=== PATIENT | male | born 1980 | race Caucasian/White ===

== ENCOUNTER 2016-09-10 01:03 | Emergency (ER) | payer MEDICAID ==
[~2016-09-10] VITALS: Ht 177.8 cm; Wt 81.6 kg
[2016-09-10 01:19] VITALS: BP 146/75; PULSE 109; RESP 14; TEMP 97.9; O2SAT 98
== END 2016-09-10 01:48 | disposition left against medical advice (07) ==
LOC: SED 01:03
DX: M79.661 Pain in right lower leg (principal); B19.20 Unspecified viral hepatitis C without hepatic coma; Z53.21 Procedure and treatment not carried out due to patient leaving prior to being seen by health care provider

== ENCOUNTER 2016-09-11 02:36 | Emergency (ER) | payer MEDICAID ==
[~2016-09-11] VITALS: Ht 177.8 cm; Wt 81.6 kg
[2016-09-11 02:36] VITALS: BP 137/78; PULSE 104; RESP 20; TEMP 97.4; O2SAT 94
[2016-09-11] MEDS ORDERED: IBUPROFEN 600 MG TABLET PO ONE (03:30)
[2016-09-11] MEDS ORDERED: CEPHALEXIN 500 MG CAPSULE PO ONE (03:30)
[2016-09-11 03:35] VITALS: BP 137/78; PULSE 98; RESP 20; TEMP 97.4; O2SAT 94
== END 2016-09-11 03:35 | disposition home or self-care (01) ==
LOC: SED 02:36
DX: S80.811A Abrasion, right lower leg, initial encounter (principal); L03.115 Cellulitis of right lower limb; Z86.19 Personal history of other infectious and parasitic diseases; V19.9XXA Pedal cyclist (driver) (passenger) injured in unspecified traffic accident, initial encounter; Y93.I9 Activity, other involving external motion; Y92.89 Other specified places as the place of occurrence of the external cause; Y99.8 Other external cause status
CPT/HCPCS: 99283

== ENCOUNTER 2016-12-24 19:46 | Emergency (ER) | payer MEDICAID ==
[~2016-12-24] VITALS: Ht 175.3 cm; Wt 79.4 kg
[2016-12-24 19:53] VITALS: BP_SYST 119
== END 2016-12-24 21:08 | disposition left against medical advice (07) ==
LOC: SED 19:46
DX: L02.415 Cutaneous abscess of right lower limb (principal); Z53.21 Procedure and treatment not carried out due to patient leaving prior to being seen by health care provider

== ENCOUNTER 2016-12-25 20:16 | Emergency (ER) | payer MEDICAID ==
[~2016-12-25] VITALS: Ht 175.3 cm; Wt 79.4 kg
[2016-12-25 20:40] VITALS: BP_SYST 134
== END 2016-12-26 01:55 | disposition left against medical advice (07) ==
LOC: SED 20:16
DX: L02.212 Cutaneous abscess of back [any part, except buttock and flank] (principal); L02.416 Cutaneous abscess of left lower limb; L02.415 Cutaneous abscess of right lower limb; Z53.21 Procedure and treatment not carried out due to patient leaving prior to being seen by health care provider

== ENCOUNTER 2017-03-23 01:09 | Emergency (ER) | payer MEDICAID ==
[~2017-03-23] VITALS: Ht 175.3 cm; Wt 83.5 kg
[2017-03-23 01:46] VITALS: BP_SYST 133
[2017-03-23] MEDS ORDERED: ceFAZolin SODIUM 1 GM VIAL IM ONE (02:45)
[2017-03-23 03:08] VITALS: BP_SYST 130
== END 2017-03-23 03:08 | disposition home or self-care (01) ==
LOC: SED 01:09
DX: L03.317 Cellulitis of buttock (principal); K76.9 Liver disease, unspecified
CPT/HCPCS: 96372; 99283; J0690; J7030

== ENCOUNTER 2018-12-27 00:17 | Emergency (ER) | payer MEDICAID ==
[~2018-12-27] VITALS: Ht 177.8 cm; Wt 77.1 kg
[2018-12-27 00:20] VITALS: BP_SYST 141
[2018-12-27] MEDS ORDERED: IBUPROFEN 800 MG TABLET PO ONE (00:45)
[2018-12-27 01:59] VITALS: BP_SYST 141
== END 2018-12-27 01:56 | disposition home or self-care (01) ==
LOC: SED 00:17
DX: S20.211A Contusion of right front wall of thorax, initial encounter (principal); R03.0 Elevated blood-pressure reading, without diagnosis of hypertension; F17.200 Nicotine dependence, unspecified, uncomplicated; Z86.19 Personal history of other infectious and parasitic diseases; Z90.89 Acquired absence of other organs; X58.XXXA Exposure to other specified factors, initial encounter; Y93.89 Activity, other specified; Y92.89 Other specified places as the place of occurrence of the external cause; Y99.8 Other external cause status
CPT/HCPCS: 71045; 71100; 99283

== ENCOUNTER 2020-03-15 20:29 | Emergency (ER) | payer MEDICAID ==
[~2020-03-15] VITALS: Ht 177.8 cm; Wt 77.1 kg
[2020-03-15 20:35] VITALS: BP_SYST 154
[2020-03-15] MEDS ORDERED: KETOROLAC TROMETHAMINE 30 MG VIAL IM ONE (22:15)
[2020-03-15] MEDS ORDERED: cefTRIAXone 1 GM in LIDOCAINE 1%, 20 ML MDV 2.1 ML IM ONE (22:15)
[2020-03-15 23:24] VITALS: BP_SYST 145
== END 2020-03-15 23:24 | disposition home or self-care (01) ==
LOC: SED 20:29
DX: L03.114 Cellulitis of left upper limb (principal); Z86.19 Personal history of other infectious and parasitic diseases
CPT/HCPCS: 96372; 99284; J0696; J1885; J2001

== ENCOUNTER 2022-12-12 20:40 | Emergency (ER) | payer MEDICAID ==
[2022-12-12 20:49] VITALS: BP_SYST 134
--- NOTE | 2022-12-12 22:39 | NUR ---
PT WAS PLACED IN ROOM 3 PT CHANGED INTO GOWN, PT CO LEFT SIDE PELVIC PAIN, AT 2225 PT LEFT ER CLAIMING HE HAD OTHER PRIORITES AND WOULD BE BACK.
--- NOTE | 2022-12-12 22:41 | NUR ---
PT WAS NOT SEEN BY ED MD
== END 2022-12-12 22:39 | disposition left against medical advice (07) ==
LOC: SED 20:40
DX: R10.32 Left lower quadrant pain (principal); R33.9 Retention of urine, unspecified; Z53.21 Procedure and treatment not carried out due to patient leaving prior to being seen by health care provider
CPT/HCPCS: 99281

== ENCOUNTER 2023-03-11 17:09 | Emergency (ER) | payer MEDICAID | END 2023-03-11 17:26 | disposition left against medical advice (07) | LOC: SED 17:09 | DX: S22.31XD Fracture of one rib, right side, subsequent encounter for fracture with routine healing (principal); Z53.21 Procedure and treatment not carried out due to patient leaving prior to being seen by health care provider; X58.XXXD Exposure to other specified factors, subsequent encounter ==

== ENCOUNTER 2023-03-11 17:39 | Emergency (ER) | payer MEDICAID ==
[~2023-03-11] VITALS: Ht 177.8 cm; Wt 76.2 kg
[2023-03-11 17:47] VITALS: BP_SYST 137; PULSE 85; RESP 18; TEMP 98.2; O2SAT 98
== END 2023-03-11 20:10 | disposition left against medical advice (07) ==
LOC: SED 17:39
DX: R07.81 Pleurodynia (principal); Z53.21 Procedure and treatment not carried out due to patient leaving prior to being seen by health care provider
CPT/HCPCS: 71110; 99281

== ENCOUNTER 2024-01-22 21:32 | Inpatient (IN) | payer MEDICAID ==
[~2024-01-22] VITALS: Ht 177.8 cm; Wt 78.0 kg
[2024-01-22 21:49] VITALS: BP_SYST 134; PULSE 114; RESP 20; TEMP 101.8; O2SAT 98
[2024-01-22] MEDS: NS 1000 ML IV.SOLN IV ONE (22:59)
[2024-01-22 23:07] LABS: BASOPHILS % (AUTO) 0.4 % (0.0-2.0); EOSINOPHILS # (AUTO) 0.2 K/uL (0.0-0.4); EOSINOPHILS % (AUTO) 4.2 % (0.0-4.0); HEMATOCRIT 30.9 % (36-54); HEMOGLOBIN 10.6 g/dL (14.0-18.0); LYMPHOCYTES # (AUTO) 0.4 K/uL (1.0-5.5); LYMPHOCYTES % (AUTO) 11.7 % (20.5-51.5); MEAN CORPUSCULAR HEMOGLOBIN 30 pg (27-31); MEAN CORPUSCULAR HGB CONC 34 % (32-36); MEAN CORPUSCULAR VOLUME 88 fL (79.0-98.0); MONOCYTES # (AUTO) 0.4 K/uL (0.0-1.0); NEUTROPHILS # (AUTO) 2.8 K/uL (1.8-7.7); NEUTROPHILS % (AUTO) 73.7 % (40.0-70.0); PLATELET COUNT (AUTO) 139 K/uL (130-430); RED CELL DISTRIBUTION WIDTH 15.6 % (9.0-15.0); WHITE BLOOD COUNT (AUTO) 3.8 K/uL (4.8-10.8)
[2024-01-22 23:32] LABS: PROTHROMBIN TIME 10.4 SECS (9.5-12.5)
[2024-01-23 00:21] LABS: ALANINE AMINOTRANSFERASE 58 U/L (12-78); ALBUMIN 2.5 g/dL (3.4-4.8); ANION GAP 13 (5-15); ASPARTATE AMINOTRANSFERASE 62 U/L (10-37); BILIRUBIN,DIRECT 0.5 mg/dL (0.0-0.3); CARBON DIOXIDE 23 mmol/L (23-29); CHLORIDE 102 mmol/L (98-107); CREATININE 1.66 mg/dL (0.55-1.30); GFR AFRICAN AMERICAN 59 mL/min (>90); GFR NON AFRICAN-AMERICAN 49 mL/min (>90); GLUCOSE 109 mg/dL (74-106); POTASSIUM 3.9 mmol/L (3.5-5.1); SODIUM SERUM 138 mmol/L (136-145); TOTAL PROTEIN, SERUM 7.7 g/dL (6.4-8.3); UREA NITROGEN, BLOOD 52 mg/dL (8-21)
[2024-01-23] MEDS ORDERED: ONDANSETRON HCL 4 MG/2 ML VIAL IVP PRN (01:15)
[2024-01-23] MEDS ORDERED: ACETAMINOPHEN 325 MG TABLET PO PRN (01:15)
[2024-01-23] MEDS: *LOVENOX 1MG/KG Q12H/PHARMACY XX ONE (01:15)
[2024-01-23] MEDS ORDERED: PIPERACILLIN/TAZOBACTAM 3.375 GM/VIAL (ZOSYN) IV ONE (01:43)
[2024-01-23] MEDS: PIPERACILLIN/TAZO 3.375 GM in NS 50 ML IV SCH (01:50)
[2024-01-23] MEDS: NACL 0.9% 1,000 ML IV ONE (01:51)
[2024-01-23 03:57] LABS: BILIRUBIN,URINE NEGATIVE (NEGATIVE); BLOOD, URINE 2+ (NEGATIVE); CLARITY/URINE SL CLOUDY (CLEAR); COLOR,URINE YELLOW (YELLOW); GLUCOSE,URINE NEGATIVE (NEGATIVE); KETONES,URINE NEGATIVE (NEGATIVE); LEUKOCYTE ESTERASE ,URINE 2+ (NEGATIVE); NITRITE, URINE POSITIVE (NEGATIVE); PROTEIN URINE TRACE (NEGATIVE)
[2024-01-23 04:07] LABS: BACTERIA,URINE MODERATE /HPF (None Seen)
[2024-01-23 04:13] LABS: BARBITURATE, URINE NEGATIVE (NEG <=200); BENZODIAZEPINE, URINE NEGATIVE (NEG <=150); CANNABINOID, URINE NEGATIVE (NEG <=50); COCAINE, URINE NEGATIVE (NEG <=150); METHAMPHETAMINES SCREEN,URINE POSITIVE (NEG <=500); OPIATE, URINE NEGATIVE (NEG <=100); PHENCYCLIDINE SCREEN,URINE NEGATIVE (NEG <=25); URINE AMPHETAMINE POSITIVE (NEG <=500); URINE METHADONE NEGATIVE (NEG <=200)
[2024-01-23 04:14] LABS: UR TRICYCLIC ANTIDEPRESSANTS NEGATIVE (NEG <=300); URINE OXYCODONE SCREEN NEGATIVE (NEG <=100)
[2024-01-23 04:45] VITALS: BP_SYST 144; PULSE 98; RESP 20; TEMP 100.4
[2024-01-23 05:27] VITALS: O2SAT 97
[2024-01-23] MEDS: ENOXAPARIN SODIUM 80 MG/0.8 ML SYRINGE SUBCUT SCH (08:06)
[2024-01-23] MEDS: MORPHINE 4 MG INJ. 4 MG/ML VIAL IVP PRN (08:07)
[2024-01-23 10:52] LABS: BASOPHILS % (AUTO) 1.2 % (0.0-2.0); EOSINOPHILS # (AUTO) 0.2 K/uL (0.0-0.4); EOSINOPHILS % (AUTO) 5.5 % (0.0-4.0); HEMATOCRIT 28.3 % (36-54); HEMOGLOBIN 9.8 g/dL (14.0-18.0); LYMPHOCYTES # (AUTO) 0.8 K/uL (1.0-5.5); LYMPHOCYTES % (AUTO) 22.5 % (20.5-51.5); MEAN CORPUSCULAR HEMOGLOBIN 30 pg (27-31); MEAN CORPUSCULAR HGB CONC 35 % (32-36); MEAN CORPUSCULAR VOLUME 87 fL (79.0-98.0); MONOCYTES # (AUTO) 0.4 K/uL (0.0-1.0); MONOCYTES % (AUTO) 13.3 % (1.7-9.3); NEUTROPHILS # (AUTO) 1.9 K/uL (1.8-7.7); NEUTROPHILS % (AUTO) 57.5 % (40.0-70.0); PLATELET COUNT (AUTO) 125 K/uL (130-430); RED BLOOD CELL COUNT(AUTO) 3.25 MIL/uL (4.2-6.2); RED CELL DISTRIBUTION WIDTH 15.3 % (9.0-15.0); WHITE BLOOD COUNT (AUTO) 3.4 K/uL (4.8-10.8)
[2024-01-23] MEDS: HYDROcodone/ACETAMIN 5-325 MG TAB (NORCO/ VICODIN) PO PRN (10:58)
[2024-01-23 11:01] LABS: CALCIUM 8.3 mg/dL (8.4-11.0); CREATININE 1.4 mg/dL (0.55-1.30); POTASSIUM 3.9 mmol/L (3.5-5.1); TOTAL BILIRUBIN 0.9 mg/dL (0.0-1.0); TOTAL PROTEIN, SERUM 6.2 g/dL (6.4-8.3)
[2024-01-23 11:24] VITALS: BP_SYST 144; PULSE 98; O2SAT 96
[2024-01-23 12:00] VITALS: BP_SYST 135; PULSE 99; RESP 18; TEMP 98.5; O2SAT 99
[2024-01-23 16:32] VITALS: BP_SYST 128; PULSE 96; RESP 18; TEMP 99.7; O2SAT 100
[2024-01-23 20:00] VITALS: BP_SYST 143; PULSE 93; RESP 18; TEMP 98.9; O2SAT 96
[2024-01-23] MEDS: APIXABAN 2.5 MG TABLET PO SCH (21:52)
[2024-01-24] MEDS ORDERED: NALOXONE HCL 0.4 MG/ML AMP (NARCAN) IVP PRN ×2 (01:30)
[2024-01-24] MEDS: LORazepam 2 MG/ML VIAL IVP PRN (01:33)
[2024-01-24] MEDS: HYDROcodone/ACETAMIN 10-325 MG TAB PO ONE (01:33)
[2024-01-24 08:20] VITALS: BP_SYST 137; PULSE 99; RESP 16; TEMP 97; O2SAT 98
[2024-01-24 11:06] VITALS: O2SAT 98
[2024-01-24 12:38] VITALS: BP_SYST 139; PULSE 74; RESP 18; TEMP 97.8; O2SAT 97
[2024-01-24 15:58] VITALS: O2SAT 97
[2024-01-24 17:15] VITALS: BP_SYST 133; PULSE 89; RESP 18; TEMP 97.9; O2SAT 98
[2024-01-24 20:00] VITALS: BP_SYST 111; PULSE 90; RESP 18; TEMP 98.5; O2SAT 99
[2024-01-25 00:02] VITALS: BP_SYST 146; PULSE 93; RESP 18; TEMP 98.6; O2SAT 98
[2024-01-25] MEDS: HYDROcodone/ACETAMIN 10-325 MG TAB PO PRN (00:32)
[2024-01-25 08:00] VITALS: BP_SYST 124; PULSE 78; RESP 18; TEMP 98.1; O2SAT 98; O2SAT 99
[2024-01-25 16:00] VITALS: BP_SYST 130; PULSE 72; RESP 20; TEMP 97.8; O2SAT 96
[2024-01-25 20:00] VITALS: BP_SYST 111; PULSE 86; RESP 18; TEMP 97.8; O2SAT 99
[2024-01-25] MEDS: BISACODYL 5 MG TABLET.DR (DULCOLAX) PO ONE (22:23)
[2024-01-25] MEDS: DOCUSATE SODIUM 250 MG CAPSULE PO ONE (22:23)
[2024-01-26 08:00] VITALS: BP_SYST 139; PULSE 70; RESP 18; TEMP 97.9; O2SAT 97
[2024-01-26] MEDS: DOCUSATE SODIUM 250 MG CAPSULE PO SCH (08:51)
[2024-01-26 12:00] VITALS: BP_SYST 133; PULSE 85; RESP 20; TEMP 98; O2SAT 98
[2024-01-26 16:00] VITALS: BP_SYST 128; PULSE 73; RESP 18; TEMP 98; O2SAT 97
[2024-01-26 17:40] VITALS: BP_SYST 130; PULSE 72; O2SAT 96
[2024-01-26 20:00] VITALS: BP_SYST 146; PULSE 73; RESP 18; TEMP 98; O2SAT 97
[2024-01-26] MEDS: BISACODYL 5 MG TABLET.DR (DULCOLAX) PO SCH (20:11)
[2024-01-26] MEDS: SODIUM PHOSPHATE,MONO-DIBASIC 133 ML ENEMA RC PRN (23:19)
[2024-01-27] VITALS: BP_SYST 136; PULSE 85; RESP 20; TEMP 98.2; O2SAT 97
[2024-01-27 08:50] VITALS: BP_SYST 137; PULSE 82; RESP 16; TEMP 97.1; O2SAT 98
[2024-01-27 11:08] VITALS: BP_SYST 126; PULSE 83; RESP 14; TEMP 98.8; O2SAT 99
[2024-01-27 16:07] VITALS: BP_SYST 128; PULSE 81; RESP 14; TEMP 98.1; O2SAT 99
[2024-01-27] MEDS ORDERED: APIX2.5T PO (17:10)
[2024-01-27 20:45] VITALS: BP_SYST 142; PULSE 73; RESP 20; TEMP 98.2; O2SAT 96
[2024-01-27 21:00] VITALS: O2SAT 96
[2024-01-28 00:30] VITALS: BP_SYST 136; PULSE 73; RESP 20; TEMP 99.2; O2SAT 95
[2024-01-28 08:00] VITALS: BP_SYST 137; PULSE 79; RESP 20; TEMP 97.4; O2SAT 98
[2024-01-28 16:19] VITALS: BP_SYST 148; PULSE 86; RESP 17; TEMP 97.4
[2024-01-28 20:25] VITALS: BP_SYST 131; PULSE 85; RESP 20; TEMP 98; O2SAT 96
[2024-01-28 20:30] VITALS: O2SAT 96
[2024-01-29] VITALS (7 sets, daily range): BP systolic 127–149; PULSE 85–96; RESP 16–18; TEMP 97.4–98.7; O2SAT 96–100
[2024-01-29 14:16] LABS: BASOPHILS % (AUTO) 0.4 % (0.0-2.0); EOSINOPHILS # (AUTO) 0.3 K/uL (0.0-0.4); EOSINOPHILS % (AUTO) 3.9 % (0.0-4.0); HEMATOCRIT 37.3 % (36-54); HEMOGLOBIN 12.8 g/dL (14.0-18.0); LYMPHOCYTES # (AUTO) 2.2 K/uL (1.0-5.5); MEAN CORPUSCULAR HEMOGLOBIN 29 pg (27-31); MEAN CORPUSCULAR HGB CONC 34 % (32-36); MEAN CORPUSCULAR VOLUME 85 fL (79.0-98.0); MONOCYTES # (AUTO) 0.7 K/uL (0.0-1.0); MONOCYTES % (AUTO) 8.4 % (1.7-9.3); NEUTROPHILS # (AUTO) 4.8 K/uL (1.8-7.7); NEUTROPHILS % (AUTO) 59.3 % (40.0-70.0); PLATELET COUNT (AUTO) 405 K/uL (130-430)
[2024-01-29 14:22] LABS: ALBUMIN 2.6 g/dL (3.4-4.8); CALCIUM 9.2 mg/dL (8.4-11.0); CREATININE 1.13 mg/dL (0.55-1.30); POTASSIUM 4.6 mmol/L (3.5-5.1); TOTAL BILIRUBIN 0.6 mg/dL (0.0-1.0); TOTAL PROTEIN, SERUM 8.3 g/dL (6.4-8.3)
[2024-01-30] VITALS: BP_SYST 135; PULSE 82; RESP 17; TEMP 97.5; O2SAT 97
[2024-01-30 08:00] VITALS: BP_SYST 150; PULSE 86; RESP 18; TEMP 97.9; O2SAT 95
[2024-01-30 12:00] VITALS: BP_SYST 132; PULSE 82; RESP 17; TEMP 97.1; O2SAT 97
[2024-01-30 20:40] VITALS: BP_SYST 136; PULSE 90; RESP 18; TEMP 98.2; O2SAT 98
[2024-01-31] MEDS: LORazepam 1 MG TABLET PO PRN (00:07)
[2024-01-31 02:32] VITALS: BP_SYST 144; PULSE 84; RESP 18; TEMP 97.6; O2SAT 98
[2024-01-31 09:22] VITALS: O2SAT 95
[2024-01-31 09:40] VITALS: BP_SYST 146; PULSE 90; RESP 19; TEMP 98.2; O2SAT 95
[2024-01-31] MEDS: APIXABAN 2.5 MG TABLET PO SCH (09:46)
[2024-01-31 20:00] VITALS: BP_SYST 146; PULSE 91; RESP 18; TEMP 98.8; O2SAT 98
[2024-02-01] VITALS: BP_SYST 141; PULSE 78; RESP 16; TEMP 98.2; O2SAT 95
[2024-02-01 08:00] VITALS: BP_SYST 142; PULSE 86; RESP 16; TEMP 97.8; O2SAT 97
[2024-02-01 09:22] VITALS: BP_SYST 142; PULSE 86; O2SAT 97
[2024-02-01 20:00] VITALS: O2SAT 97
== END 2024-02-01 23:00 | disposition left against medical advice (07) | DRG 197 ==
LOC: SED 21:32 → STU 01-23 01:05 → SMU 01-26 15:31
PROVIDERS: ADMIT Internal Medicine; ATTEND Internal Medicine
DX: I82.492 Acute embolism and thrombosis of other specified deep vein of left lower extremity (principal); N17.0 Acute kidney failure with tubular necrosis; J69.0 Pneumonitis due to inhalation of food and vomit; E43 Unspecified severe protein-calorie malnutrition; R65.10 Systemic inflammatory response syndrome (SIRS) of non-infectious origin without acute organ dysfunction; N13.30 Unspecified hydronephrosis; F15.10 Other stimulant abuse, uncomplicated; F41.9 Anxiety disorder, unspecified; F31.9 Bipolar disorder, unspecified; Z53.29 Procedure and treatment not carried out because of patient's decision for other reasons; Z59.00 Homelessness unspecified; Z68.24 Body mass index [BMI] 24.0-24.9, adult
CPT/HCPCS: 36415; 71045; 73552; 80048; 80053; 80076; 80307; 81000; 81001; 81015; 83605; 84484; 85025; 85610; 85730; 87040; 87086; 87186; 93005; 93971; 94070; 94760; 96360; 97110-GP; 97530-GP; 99285; G0378; J1650; J2060; J2270; J2405; J2543

== ENCOUNTER 2024-02-03 01:04 | Emergency (ER) | payer MEDICAID ==
[~2024-02-03] VITALS: Ht 177.8 cm; Wt 80.7 kg
[~2024-02-03 01:04] MED LIST: APIX2.5T PO
[2024-02-03 01:10] VITALS: BP_SYST 131; PULSE 115; RESP 18; TEMP 97.6; O2SAT 96
[2024-02-03] MEDS: ACETAMINOPHEN 500 MG TABLET PO ONE (02:18)
[2024-02-03 02:24] LABS: BASOPHILS % (AUTO) 0.3 % (0.0-2.0); EOSINOPHILS % (AUTO) 0.4 % (0.0-4.0); HEMOGLOBIN 13.4 g/dL (14.0-18.0); LYMPHOCYTES # (AUTO) 1.4 K/uL (1.0-5.5); LYMPHOCYTES % (AUTO) 12.8 % (20.5-51.5); MEAN CORPUSCULAR HEMOGLOBIN 29 pg (27-31); MEAN CORPUSCULAR HGB CONC 34 % (32-36); MEAN CORPUSCULAR VOLUME 86 fL (79.0-98.0); MONOCYTES # (AUTO) 0.8 K/uL (0.0-1.0); MONOCYTES % (AUTO) 7.5 % (1.7-9.3); NEUTROPHILS # (AUTO) 8.4 K/uL (1.8-7.7); PLATELET COUNT (AUTO) 401 K/uL (130-430); RED BLOOD CELL COUNT(AUTO) 4.65 MIL/uL (4.2-6.2); RED CELL DISTRIBUTION WIDTH 16.7 % (9.0-15.0); WHITE BLOOD COUNT (AUTO) 10.6 K/uL (4.8-10.8)
[2024-02-03 02:31] LABS: BILIRUBIN,URINE NEGATIVE (NEGATIVE); BLOOD, URINE NEGATIVE (NEGATIVE); CLARITY/URINE CLEAR (CLEAR); COLOR,URINE YELLOW (YELLOW); GLUCOSE,URINE NEGATIVE (NEGATIVE); KETONES,URINE NEGATIVE (NEGATIVE); LEUKOCYTE ESTERASE ,URINE NEGATIVE (NEGATIVE); NITRITE, URINE NEGATIVE (NEGATIVE); PROTEIN URINE NEGATIVE (NEGATIVE); UROBILINOGEN,URINE 0.2 (0.2-1.0)
[2024-02-03 02:35] LABS: ALBUMIN 3.5 g/dL (3.4-4.8); BILIRUBIN,DIRECT 0.4 mg/dL (0.0-0.3); CALCIUM 10.9 mg/dL (8.4-11.0); CREATININE 1.56 mg/dL (0.55-1.30); POTASSIUM 4.2 mmol/L (3.5-5.1); TOTAL BILIRUBIN 1.1 mg/dL (0.0-1.0); TOTAL PROTEIN, SERUM 9.3 g/dL (6.4-8.3)
[2024-02-03 02:45] VITALS: BP_SYST 131; PULSE 115; RESP 18; TEMP 97.6; O2SAT 96
[2024-02-03 03:04] LABS: BARBITURATE, URINE NEGATIVE (NEG <=200); BENZODIAZEPINE, URINE POSITIVE (NEG <=150); CANNABINOID, URINE POSITIVE (NEG <=50); COCAINE, URINE NEGATIVE (NEG <=150); METHAMPHETAMINES SCREEN,URINE POSITIVE (NEG <=500); OPIATE, URINE POSITIVE (NEG <=100); PHENCYCLIDINE SCREEN,URINE NEGATIVE (NEG <=25); URINE AMPHETAMINE POSITIVE (NEG <=500); URINE METHADONE NEGATIVE (NEG <=200); URINE OXYCODONE SCREEN NEGATIVE (NEG <=100)
[2024-02-03 03:05] LABS: UR TRICYCLIC ANTIDEPRESSANTS NEGATIVE (NEG <=300)
== END 2024-02-03 02:45 | disposition home or self-care (01) ==
LOC: SED 01:04
DX: R10.30 Lower abdominal pain, unspecified (principal); R33.9 Retention of urine, unspecified; F19.10 Other psychoactive substance abuse, uncomplicated; F17.200 Nicotine dependence, unspecified, uncomplicated; F12.90 Cannabis use, unspecified, uncomplicated; F15.90 Other stimulant use, unspecified, uncomplicated; Z98.890 Other specified postprocedural states; Z79.899 Other long term (current) drug therapy
CPT/HCPCS: 36415; 71045; 80048; 80076; 80307; 81001; 81003; 83605; 85025; 87040; 99284